=== PATIENT | female | born 1965 | race Caucasian/White ===

== ENCOUNTER 2019-02-25 00:22 | Inpatient (IN) ==
[2019-02-25] MEDS ORDERED: IOPAMIDOL 100 ML BOTTLE IV ONE (00:23)
[2019-02-25] MEDS: METOPROLOL TARTRATE 5 MG/5 ML VIAL IV SCH ×4 (00:45→09:30)
[2019-02-25] MEDS ORDERED: DILTIAZEM 25 MG/5 ML VIAL IV ONE (01:11)
[2019-02-25] MEDS ORDERED: DILTIAZEM 125 MG in DEXTROSE 5% IN WATER 100 ML IV SCH (01:15)
[2019-02-25 01:25] LABS: Basophils # (Auto) 0.1 K/mcL (0.0-0.3); Basophils % (Auto) 0.3 % (0.0-2.0); Eosinophils # (Auto) 0.2 K/mcL (0.0-0.7); Eosinophils % (Auto) 1.2 % (0.0-7.0); Granulocytes % (Auto) 78.5 % (38.0-78.0); Lymphocytes # (Auto) 2.7 K/mcL (1.5-4.8); Lymphocytes % (Auto) 14.3 % (15.5-49.0); Mean Cell Volume 87.6 fL (80.0-100.0); Mean Corpuscular HGB Conc 32.9 g/dL (31.0-36.0); Monocytes # (Auto) 1.1 K/mcL (0.1-0.9); Monocytes % (Auto) 5.7 % (1.0-12.0); Platelet Count 231 K/mcL (140-440); RBC 4.18 M/mcL (4.00-5.20); Red Cell Distribution Width 14.3 % (11.5-14.5)
[2019-02-25 01:55] LABS: ALT/SGPT 14 U/l (0-40); Albumin 3.6 gm/dL (3.2-5.2); Albumin/Globulin Ratio 0.9 (1.0-2.3); Alkaline Phosphatase 149 U/L (39-117); Blood Urea Nitrogen 20 mg/dl (6-20)
[2019-02-25] MEDS ORDERED: 0.9 % SODIUM CHLORIDE 1,000 ML IV ONE (02:27)
--- NOTE | 2019-02-25 02:53 | Emergency Department Note ---
Arrhythmia/Palpitations HPI - General Chief Complaint: Arrhythmia/Palpitations Stated Complaint: heart palpitations Time Seen by Provider: 02/25/19 00:37 Source: patient Mode of arrival: ambulatory Limitations: no limitations - History of Present Illness HPI Narrative: 53-year-old female who since about 8 PM or about 4 hours prior to arrival developed significant racing heartbeat. She has not had this before. She has had general malaise and a cough along with a fever for the last couple of days. She has had left-sided rib pain as well but slow below her breast. Denies any trauma. She is not on home oxygen nor does she have thyroid issues - Related Data Home Medications Medication Instructions Recorded Confirmed mecobalamin (vitamin B12) 1,000 1,000 mcg SUBLINGUAL QDAY 12/19/18 02/25/19 mcg disintegrating tablet,sublingual multivitamin tablet 1 tab PO QAM 12/19/18 02/25/19 Acetaminophen [Tylenol Arthritis] 500 mg PO BID 02/25/19 02/25/19 Ibuprofen [Advil] 800 mg PO BID 02/25/19 02/25/19 Naproxen Sod/Diphenhydram HCl 1 tab PO BID 02/25/19 02/25/19 [Aleve Pm Caplet] Previous Rx's Medication Instructions Recorded tizanidine 4 mg tablet 4 mg PO TID PRN #60 tab 12/19/18 hydrocodone 10 mg-acetaminophen 1 tab PO TID 28 Days #84 tab 01/28/19 325 mg tablet Allergies Allergy/AdvReac Type Severity Reaction Status Date / Time No Known Drug Allergies Allergy Verified 02/25/19 05:25 Review of Systems All systems ED: reviewed and negative except as stated. Past Medical History - Past Medical History Attestation: Yes: The following information was validated with the patient. Medical history: Reports: other (He) Surgical history ED: Reports: bariatric surgery, orthopedic, other (Carpal tunnel, 2 times lumbar surgery, left elbow) - Social History smoking status: Current every day smoker Physical Exam Overweight female no acute distress resting comfortably. Normocephalic atrauma tic. Conjunctive are clear sclerae white and nonicteric. No nasal discharge or congestion. Oropharynx pink moist. Neck is supple without lymphadenopathy or thyromegaly. No carotid bruit. Heart is regular rate and rhythm no murmur appreciated. Lungs are basically clear to auscultation but decreased sounds on the left base. Auscultation is limited by body habitus. no wheezes rales rhonchi or respiratory distress. Abdomen is soft nontender nondistended. No peritoneal signs or guarding. No pedal edema. Alert and oriented Limitations: no limitations Course Vital Signs Temperature 97.5 F 02/25/19 00:24 Pulse Rate 152 H 02/25/19 00:24 Respiratory Rate 28 H 02/25/19 00:24 Blood Pressure 125/86 02/25/19 00:24 Pulse Oximetry (%) 96 02/25/19 00:24 Temperature 98.7 F 02/25/19 04:56 Pulse Rate 69 02/25/19 03:16 Respiratory Rate 16 02/25/19 05:00 Blood Pressure 91/77 02/25/19 05:00 Pulse Oximetry (%) 95 02/25/19 05:13 Arrhythmia/Palpitations - Lab Data Lab results reviewed: Yes I reviewed the patient's lab results. Result diagrams: 02/25/19 00:50 02/25/19 00:50 Lab Results 02/25/19 02/25/19 02/25/19 Range/Units 00:50 00:50 00:50 WBC 18.7 H (4.5-11.0) K/mcL RBC 4.18 (4.00-5.20) M/mcL Hgb 12.0 (12.0-15.0) g/dL Hct 36.6 (36.0-48.0) % POC Hct 38.0 (36.0-48.0) % MCV 87.6 (80.0-100.0) fL MCH 28.8 (26.0-34.0) pg MCHC 32.9 (31.0-36.0) g/dL RDW 14.3 (11.5-14.5) % Plt Count 231 (140-440) K/mcL MPV 11.2 H (7.4-10.4) fL Gran % 78.5 H (38.0-78.0) % Lymph % (Auto) 14.3 L (15.5-49.0) % [place] % (Auto) 5.7 (1.0-12.0) % Eos % (Auto) 1.2 (0.0-7.0) % Baso % (Auto) 0.3 (0.0-2.0) % Gran # 14.7 H (1.8-8.0) K/mcL Lymph # (Auto) 2.7 (1.5-4.8) K/mcL [place] # (Auto) 1.1 H (0.1-0.9) K/mcL Eos # (Auto) 0.2 (0.0-0.7) K/mcL Baso # (Auto) 0.1 (0.0-0.3) K/mcL PT 13.4 (11.9-14.5) sec INR 1.0 (0.9-1.1) D-Dimer 1.55 H (0.00-0.40) ug/ml POC Sodium 140 (133-145) mmol/L Sodium 139 (133-145) mmol/L POC Potassium 3.4 (3.3-5.1) mmol/L Potassium 3.4 (3.3-5.1) mmol/L POC Chloride 106 (96-108) mmol/L Chloride 101 (96-108) mmol/L Carbon Dioxide 20 L (22-30) mmol/L POC Total CO2 21 L (22-30) mmol/L Anion Gap 18.0 H (8-16) POC BUN 21 H (6-20) mg/dl BUN 20 (6-20) mg/dl Creatinine 0.5 L (0.6-1.1) mg/dl POC Creatinine 0.4 L (0.6-1.1) mg/dl GFR Calculation 111 Glucose 128 H (70-105) mg/dL POC Glucose 134 H (70-105) mg/dL Calcium 9.5 (8.6-10.4) mg/dl POC WB Ioniz Calcium 1.18 (1.16-1.32) mmol/L Magnesium 1.8 (1.6-2.5) mg/dL Total Bilirubin 0.4 (0.0-1.0) mg/dL AST 17 (0-37) U/l ALT 14 (0-40) U/l Alkaline Phosphatase 149 H (39-117) U/L Troponin T (0-0.03) ng/ml Total Protein 7.7 (5.9-8.4) gm/dL Albumin 3.6 (3.2-5.2) gm/dL Globulin 4.1 H (2.2-3.7) gm/dL Albumin/Globulin Ratio 0.9 L (1.0-2.3) TSH 1.55 (0.27-5.01) uIU/ml Urine Color Urine Appearance Urine pH (5.0-9.0) Ur Specific [place] (1.000-1.035) Urine Protein (NEG) mg/dL Urine Glucose (UA) (NEG) mg/dL Urine Ketones (NEG) mg/dL Urine Occult Blood (<0.03) mg/dL Urine Nitrate (NEG) Urine Bilirubin (NEG) mg/dL Urine Urobilinogen (NEG) mg/dL Ur Leukocyte Esterase (NEG) /uL Urine RBC (0-1) /hpf Urine WBC (0-4) /hpf Ur Squamous Epith Cells (0-4) /hpf Urine Bacteria (0) /hpf Urine Mucus (0) /hpf Ur Culture Indicated? 02/25/19 02/25/19 Range/Units 00:50 02:00 WBC (4.5-11.0) K/mcL RBC (4.00-5.20) M/mcL Hgb (12.0-15.0) g/dL Hct (36.0-48.0) % POC Hct (36.0-48.0) % MCV (80.0-100.0) fL MCH (26.0-34.0) pg MCHC (31.0-36.0) g/dL RDW (11.5-14.5) % Plt Count (140-440) K/mcL MPV (7.4-10.4) fL Gran % (38.0-78.0) % Lymph % (Auto) (15.5-49.0) % [place] % (Auto) (1.0-12.0) % Eos % (Auto) (0.0-7.0) % Baso % (Auto) (0.0-2.0) % Gran # (1.8-8.0) K/mcL Lymph # (Auto) (1.5-4.8) K/mcL [place] # (Auto) (0.1-0.9) K/mcL Eos # (Auto) (0.0-0.7) K/mcL Baso # (Auto) (0.0-0.3) K/mcL PT (11.9-14.5) sec INR (0.9-1.1) D-Dimer (0.00-0.40) ug/ml POC Sodium (133-145) mmol/L Sodium (133-145) mmol/L POC Potassium (3.3-5.1) mmol/L Potassium (3.3-5.1) mmol/L POC Chloride (96-108) mmol/L Chloride (96-108) mmol/L Carbon Dioxide (22-30) mmol/L POC Total CO2 (22-30) mmol/L Anion Gap (8-16) POC BUN (6-20) mg/dl BUN (6-20) mg/dl Creatinine (0.6-1.1) mg/dl POC Creatinine (0.6-1.1) mg/dl GFR Calculation Glucose (70-105) mg/dL POC Glucose (70-105) mg/dL Calcium (8.6-10.4) mg/dl POC WB Ioniz Calcium (1.16-1.32) mmol/L Magnesium (1.6-2.5) mg/dL Total Bilirubin (0.0-1.0) mg/dL AST (0-37) U/l ALT (0-40) U/l Alkaline Phosphatase (39-117) U/L Troponin T 0.03 (0-0.03) ng/ml Total Protein (5.9-8.4) gm/dL Albumin (3.2-5.2) gm/dL Globulin (2.2-3.7) gm/dL Albumin/Globulin Ratio (1.0-2.3) TSH (0.27-5.01) uIU/ml Urine Color Yellow Urine Appearance Hazy Urine pH 5.0 (5.0-9.0) Ur Specific [place] 1.021 (1.000-1.035) Urine Protein 30 A (NEG) mg/dL Urine Glucose (UA) Negative (NEG) mg/dL Urine Ketones 5/tr A (NEG) mg/dL Urine Occult Blood 0.2 A (<0.03) mg/dL Urine Nitrate Neg (NEG) Urine Bilirubin Neg (NEG) mg/dL Urine Urobilinogen 4.0 A (NEG) mg/dL Ur Leukocyte Esterase 25 A (NEG) /uL Urine RBC 9 H (0-1) /hpf Urine WBC 11 H (0-4) /hpf Ur Squamous Epith Cells 2 (0-4) /hpf Urine Bacteria Mod A (0) /hpf Urine Mucus Many A (0) /hpf Ur Culture Indicated? Yes - Radiology Data Radiology results reviewed: Yes I reviewed the patient's radiology results. Chest x-ray shows a left lower lobe density consistent with infiltrate. CTA is ordered. CTA shows left lower lobe consolidation consistent with neoplasm versus pneumonia - EKG Data EKG attestation: Yes I reviewed and interpreted this EKG. EKG results narrative: EKG shows a rate of 150 atrial fibrillation with rapid ventricular response and left ventricular hypertrophy Disposition Pt seen by [facility]/PA only: No Clinical Impression: Atrial fibrillation with RVR, Mass of left lung Summary: After initial evaluation she was found to be in new onset atrial fibrillation with rapid ventricular response with heart rate in the 150s and 60s. We tried 3 doses of IV metoprolol to get her rapid ventricular response to calm down. This did not work except to get her down into the 130s or so. So we gave her a test dose diltiazem and then started her on a diltiazem drip this we are able to get her down into 110 or so pulse Work-up for causes of atrial fibrillation was negative except for x-ray and CT scan which showed a left lower lobe pneumonia versus neoplasm. Cultures are done and antibiotics are started-Duyen Discussed situation with hospitalist, Dr. Harrington, who agreed to accept the patient for further care and evaluation in the hospital. I wrote holding orders Disposition: Xfer As Inpt ([facility]) Condition: Fair
[2019-02-25 03:04] LABS: Appearance,Urine HAZY; Bacteria,Urine MOD /hpf (0); Bilirubin,Urine NEG (NEG); Color,Urine YELLOW; Glucose,Urine (UA) NEGATIVE (NEG); Leukocyte Esterase,Urine 25 /uL (NEG); Mucus,Urine MANY /hpf (0); Protein,Urine 30 mg/dL (NEG); Specific Gravity,Urine 1.021 (1.000-1.035); Urine Blood 0.2 mg/dL (<0.03); Urine RBC 9 /hpf (0-1); Urine Squamous Epithelial Cell 2 /hpf (0-4); Urine WBC 11 /hpf (0-4)
[2019-02-25] MEDS ORDERED: ACETAMINOPHEN 325 MG TABLET PO PRN ×3 (03:07→08:59)
[2019-02-25] MEDS ORDERED: ONDANSETRON 4 MG/2 ML VIAL IV PRN ×2 (03:07→08:59)
[2019-02-25] MEDS ORDERED: PIPERACILLIN SODIUM/TAZOBACTAM 3.375 GM in DEXTROSE 5% IN WATER 50 ML IV ONE (03:13)
[2019-02-25] MEDS ORDERED: 0.9 % SODIUM CHLORIDE 1,000 ML IV SCH ×4 (03:15→08:59)
--- NOTE | 2019-02-25 05:59 | Cat Scan Report ---
CLINICAL INFORMATION: Atrial fibrillation. Tachycardia. Chest pain. COMPARISON: Chest x-ray dated 02/25/2019 TECHNIQUE: Axial images obtained through the chest. 80 mL intravenous contrast was administered, and scanning was performed during pulmonary arterial phase. Sagittally and coronally reformatted images were obtained. MIP reformatted images. FINDINGS: Main pulmonary artery, right pulmonary artery, left pulmonary artery are negative. No lobar, segmental, or subsegmental emboli. There is reflux of contrast material into the inferior vena cava and hepatic veins which suggests an element of right heart strain. Dense left lower lobe consolidation. Appearance is consistent with pneumonia. Follow-up radiographs are recommended. Right lung is negative. There is mediastinal adenopathy. This is nonspecific and may be reactive. No axillary or supraclavicular adenopathy. No significant pleural effusion. There is no pericardial effusion. There is dense coronary artery calcification, advanced for age. No thoracic compression fractures. No sternal or rib lesions. Visualized portions of the liver are negative. Gallbladder is present. There is a 10 mm nonobstructing right upper pole left renal stone. There are multiple surgical clips in the upper abdomen. Previous gastric bypass procedure suspected. There is residual semisolid material within the. Esophageal study may be helpful. Examination was initially interpreted by [facility] IMPRESSION: 1. Negative pulmonary CTA. Negative examination for pulmonary embolism 2. Dense left lower lobe consolidation consistent with pneumonia. Follow-up is necessary. Mild mediastinal adenopathy 3. Some residual food within the esophagus. 4. Coronary artery calcification, advanced for age 5. Nonobstructing left upper pole renal calculus. 6. Postsurgical changes in the upper abdomen suggest previous gastric bypass 7. Reflux of contrast material into the inferior vena cava and hepatic veins suggestive of right heart strain despite absence of pulmonary emboli The exam was performed using radiation dose optimization techniques including, but not limited to, automated exposure control, adjustment of the mA and/or kV according to patient size and use of iterative reconstruction technique. Interpreted and Authenticated by: Kyree Clifford 02/25/19
--- NOTE | 2019-02-25 06:00 | XRay Report ---
INDICATION: Chest pain. Arrhythmia. TECHNIQUE: PA and lateral upright chest x-ray COMPARISON: Previous chest x-ray dated 09/24/2018 FINDINGS:Mass like density in the left lower lobe. This is probably pneumonia. This was not present previously and this is too rapid growth pattern for lung cancer. Right lung is negative. No parenchymal infiltrate or mass. Heart size and vascularity are within normal limits. Niru and mediastinum are negative. No evidence for significant pleural effusion. There are multiple surgical clips in the upper abdomen IMPRESSION: 1. Left lower lobe consolidation consistent with pneumonia 2. Follow-up chest x-ray recommended Interpreted and Authenticated by: Kyree Clifford 02/25/19
--- NOTE | 2019-02-25 08:05 | Internal Med History&Physical ---
Medical - H&P: [facility] Patient information: Note initiated : 02/25/19 at 8:01 am Service Date, if different from initiated Date: [] Patient: Celina Zheng 53 y/o F admitted on 02/25/19 for Heart Palpitations. Chief Complaint: [] Chief complaint: shortness of breath, palpitation and cough History of present illness: Ms. Zheng is a 53 year old F who [facility] after noticing worsening shortness of breath along with cough and chest palpitation that started 8 hours prior to presentation. Patient has been feeling sick over the last couple of days however her symptoms progressed dramatically this morning after experiencing rapid heart rate along with p leuritic chest pain on the left side. She has associated sweats but denies fever or chills. She denies recent exposure to sick contacts the hospitalization. She denies choking episodes. She denies prior similar events. She continues to smoke a pack a day. Initial workup in the ER was consistent with sepsis with white count over 18,000 along with left lower lobe dense infiltrate consistent with pneumonia. Initial heart rate was over 150 atrial fibrillation. Patient was started on diltiazem drip. Pancultures obtained and sent, antibiotics were initiated . Subsequently hospitalist service for consult for admission At the time evaluation patient is alert oriented. She is able to answer most of the questions. She denies diarrhea, dysuria, abdominal pain, weight loss, glandular swelling. She does have left-sided facial droop. Review of systems 10 point review systems was performed and is negative except as discussed above Medical - H&P: PMH Medical history: Weakness of limb (Chronic) Arthritis (Chronic) DDD (degenerative disc disease) (Chronic) Joint pain (Chronic ~2016) Insomnia (Chronic ~2017) Depression (Chronic ~2017) Daytime sleepiness (Chronic ~2015) Anxiety (Chronic ~2012) Acid reflux (Chronic ~2003) Surgical History History of back surgery (Chronic ~2004) History of colonoscopy (Chronic) History of elbow surgery (Chronic ~2015) Left-nerve History of gastric bypass (Chronic ~2015) History of spinal fusion (Chronic ~2017) Family History Mother Arthritis Hypertension Grandmother Arthritis Maternal & Paternal Dementia Paternal Father Hypertension Social History marital status: smoking status: Current every day smoker alcohol intake frequency: holiday/special occasion only substance use type: does not use Reproductive History Menstrual Age of Menarche: 13 Total pregnancies: 2 Medical - H&P: Meds Home Medications Medication Instructions Recorded Confirmed Type mecobalamin (vitamin B12) 1,000 1,000 mcg SUBLINGUAL QDAY 12/19/18 02/25/19 History mcg disintegrating tablet,sublingual multivitamin tablet 1 tab PO QAM 12/19/18 02/25/19 History tizanidine 4 mg tablet 4 mg PO TID PRN #60 tab 12/19/18 02/25/19 Rx hydrocodone 10 mg-acetaminophen 1 tab PO TID 28 Days #84 tab 01/28/19 02/25/19 Rx 325 mg tablet Acetaminophen [Tylenol Arthritis] 500 mg PO BID 02/25/19 02/25/19 History Ibuprofen [Advil] 800 mg PO BID 02/25/19 02/25/19 History Naproxen Sod/Diphenhydram HCl 1 tab PO BID 02/25/19 02/25/19 History [Aleve Pm Caplet] Allergies Allergy/AdvReac Type Severity Reaction Status Date / Time No Known Drug Allergies Allergy Verified 02/25/19 05:25 Medical - H&P: Exam - Constitutional Vitals: Temp Pulse Resp BP Pulse Ox 98.1 F 69 18 113/80 96 02/25/19 08:00 02/25/19 03:16 02/25/19 08:00 02/25/19 08:00 02/25/19 08:00 General appearance: moderate distress Exam: Patient alert and oriented Oral cavity dry Head normocephalic No scleral icterus No neck lymphadenopathy S1 and S2 irregular rhythm tachycardia Diminished breath sounds bases, left sided increased fremitus posterior lateral chest Abdomen soft nontender Lower extremity no cyanosis clubbing or joint swelling Skin no suspicious lesion Psych alert cooperative Neuro nonfocal Medical - H&P: Reslt - Labs CBC & Chem 7: 02/25/19 00:50 02/25/19 00:50 Labs: Short CBC 02/25/19 Range/Units 00:50 WBC 18.7 H (4.5-11.0) K/mcL Hgb 12.0 (12.0-15.0) g/dL Hct 36.6 (36.0-48.0) % Plt Count 231 (140-440) K/mcL BMP 02/25/19 00:50 Sodium 139 Potassium 3.4 Chloride 101 Carbon Dioxide 20 L BUN 20 Creatinine 0.5 L Glucose 128 H Calcium 9.5 Cardiac Enzymes 02/25/19 02/25/19 Range/Units 00:50 04:53 Troponin T 0.03 0.03 (0-0.03) ng/ml Liver Function 02/25/19 Range/Units 00:50 Total Bilirubin 0.4 (0.0-1.0) mg/dL AST 17 (0-37) U/l ALT 14 (0-40) U/l Alkaline Phosphatase 149 H (39-117) U/L Albumin 3.6 (3.2-5.2) gm/dL Urine 02/25/19 Range/Units 02:00 Urine Color Yellow Urine Appearance Hazy Urine pH 5.0 (5.0-9.0) Ur Specific [place] 1.021 (1.000-1.035) Urine Protein 30 A (NEG) mg/dL Urine Glucose (UA) Negative (NEG) mg/dL - Imaging and Cardiology CT scan - chest Status: image reviewed by me Additional comments: 1. Negative pulmonary CTA. Negative examination for pulmonary embolism 2. Dense left lower lobe consolidation consistent with pneumonia. Follow-up is necessary. Mild mediastinal adenopathy 3. Some residual food within the esophagus. 4. Coronary artery calcification, advanced for age 5. Nonobstructing left upper pole renal calculus. 6. Postsurgical changes in the upper abdomen suggest previous gastric bypass 7. Reflux of contrast material into the inferior vena cava and hepatic veins suggestive of right heart strain despite absence of pulmonary emboli Medical - H&P: A/P (1) Atrial fibrillation with RVR Current visit: Yes Status: Acute * Atrial fibrillation with rapid ventricular rate-secondary to sepsis and pneumo tiffanie. Continue rate control measures/telemetry monitoring. Target heart rate around 110-120, check echocardiogram,/normal TSH * Left lower lobe pneumonia evident on CT-start antibiotic coverage for enteric pathogen. Check strep pneumo/mycoplasma serology * Severe sepsis with white count over 18,000. Continue antibiotic coverage/crystalloids. Continue management per guidelines * Acute cystitis-continue antibiotic coverage * Full code * Prophylaxis heparin Plan * Sepsis management per guidelines/broad antibiotic coverage * Rate control measures * Echocardiogram * Repeat chest imaging in 2 weeks * Inpatient admitted in light of pneumonia severity index over 100. qSofa score 2 Medical - H&P: Qual - VTE Deep Vein Thrombosis/Pulmonary Embolism Present on Admission: No
[2019-02-25] MEDS ORDERED: tiZANidine 4 MG TABLET PO PRN (08:59)
[2019-02-25] MEDS ORDERED: MAGNESIUM SULFATE 2 GM/50 ML BAG IV PRN (08:59)
[2019-02-25] MEDS ORDERED: POTASSIUM CHLORIDE 20 MEQ PACKET PO PRN (08:59)
[2019-02-25] MEDS ORDERED: tiZANidine 4 MG TABLET PO SCH ×2 (09:00)
[2019-02-25] MEDS ORDERED: HYDROcodone/APAP 10/325MG TABLET PO SCH (09:00)
[2019-02-25] MEDS ORDERED: METOPROLOL TARTRATE 5 MG/5 ML VIAL IV PRN (09:22)
[2019-02-25] MEDS: MULTIVIT,THER IRON,CA,FA & MIN 1 TABLET PO SCH (10:06)
[2019-02-25] MEDS: NICOTINE 21 MG PATCH TOPICAL SCH (10:06)
[2019-02-25] MEDS: METOPROLOL TARTRATE 25 MG TABLET PO SCH ×2 (10:06→20:53)
[2019-02-25] MEDS: DOCUSATE SODIUM 100 MG CAPSULE PO SCH ×3 (10:07→20:52)
[2019-02-25] MEDS: HEPARIN 5,000 UNIT/ML VIAL SQ SCH ×2 (10:09→20:52)
[2019-02-25] MEDS: cefTRIAXone 2 GM in DEXTROSE 5% IN WATER 50 ML IV SCH (10:10)
[2019-02-25] MEDS: 0.9 % SODIUM CHLORIDE 1,000 ML IV SCH (10:11)
[2019-02-25 10:13] LABS: C-Reactive Protein 26.9 mg/dl (0.0-0.8)
[2019-02-25] MEDS: IPRATROPIUM/ALBUTEROL 3 ML AMPUL.NEB NEB SCH ×4 (10:35→23:01)
[2019-02-25] MEDS: BUDESONIDE 0.5 MG/2 ML AMPUL.NEB NEB SCH ×2 (10:35→18:41)
[2019-02-25] MEDS: LEVOFLOXACIN 750 MG/150 ML BAG IV SCH (11:03)
[2019-02-25] MEDS ORDERED: DILTIAZEM 125 MG in DEXTROSE 5% IN WATER 100 ML IV PRN (13:15)
[2019-02-25] MEDS: HYDROcodone/APAP 10/325MG TABLET PO PRN ×3 (13:50→23:56)
[2019-02-25] MEDS: 0.9 % SODIUM CHLORIDE 10 ML SYRINGE IV SCH ×2 (14:26→22:00)
[2019-02-25] MEDS: SENNOSIDES/DOCUSATE SODIUM 1 TAB TABLET PO SCH (20:52)
[2019-02-26] MEDS: IPRATROPIUM/ALBUTEROL 3 ML AMPUL.NEB NEB SCH ×3 (02:45→11:17)
[2019-02-26] MEDS: 0.9 % SODIUM CHLORIDE 10 ML SYRINGE IV SCH ×3 (05:19→20:57)
[2019-02-26 06:02] LABS: Mean Cell Volume 88.9 fL (80.0-100.0); Mean Corpuscular HGB Conc 32.1 g/dL (31.0-36.0); Platelet Count 193 K/mcL (140-440); RBC 3.38 M/mcL (4.00-5.20)
[2019-02-26] MEDS: METOPROLOL TARTRATE 25 MG TABLET PO SCH (06:02)
[2019-02-26 06:42] LABS: ALT/SGPT 22 U/l (0-40); Albumin 2.9 gm/dL (3.2-5.2); Albumin/Globulin Ratio 0.8 (1.0-2.3); Alkaline Phosphatase 137 U/L (39-117); Bilirubin,Direct < 0.2 mg/dL (0.0-0.3); Blood Urea Nitrogen 13 mg/dl (6-20); Gamma Glutamyl Transpeptidase 59 U/L (5-36); Uric Acid 5.7 mg/dL (2.5-8.0)
[2019-02-26 06:48] LABS: Band Neutrophils % 4 % (0-10); Eosinophils % (Manual) 3 % (0-7); Lymphocytes % 31 % (15-49); Monocytes % (Manual) 7 % (1-12); Platelet Estimate NORMAL (NORMAL); RBC Morphology NORMAL (NORMAL); Segmented Neutrophils % 55 % (38-78)
[2019-02-26] MEDS: BUDESONIDE 0.5 MG/2 ML AMPUL.NEB NEB SCH (07:09)
[2019-02-26] MEDS: 0.9 % SODIUM CHLORIDE 1,000 ML IV SCH (08:26)
[2019-02-26] MEDS: MULTIVIT,THER IRON,CA,FA & MIN 1 TABLET PO SCH (08:31)
[2019-02-26] MEDS: CYANOCOBALAMIN (VITAMIN B-12) 500 MCG TABLET PO SCH (08:31)
[2019-02-26] MEDS: NICOTINE 21 MG PATCH TOPICAL SCH (08:31)
[2019-02-26] MEDS: DOCUSATE SODIUM 100 MG CAPSULE PO SCH ×2 (08:31→20:56)
[2019-02-26] MEDS: HEPARIN 5,000 UNIT/ML VIAL SQ SCH (08:31)
[2019-02-26] MEDS: cefTRIAXone 2 GM in DEXTROSE 5% IN WATER 50 ML IV SCH (08:53)
[2019-02-26] MEDS ORDERED: METOPROLOL TARTRATE 25 MG TABLET PO ONE (08:54)
[2019-02-26] MEDS ORDERED: FLUCONAZOLE 100 MG TABLET PO SCH (09:00)
[2019-02-26] MEDS: LEVOFLOXACIN 750 MG/150 ML BAG IV SCH (10:10)
--- NOTE | 2019-02-26 10:59 | Internal Med Progress Note ---
Medical - PN: Subj Patient information: Note initiated : 02/26/19 at 10:56 am Service Date, if different from initiated Date: [] Patient: Celina Zheng 53 y/o F admitted on 02/25/19 for Heart Palpitations. Chief Complaint: [] Interval history: Ms. Zheng is a 53 year old F who comes in with her spouse Renetta to [facility] ER after noticing worsening shortness of breath along with cough and chest palpitation that started 8 hours prior to presentation. Patient has been feeling sick over the last couple of days however her symptoms progressed dramatically this morning after experiencing rapid heart rate along with pleuritic chest pain on the left side. She has associated sweats but denies fever or chills. She denies recent exposure to sick contacts the hospitalization. She denies choking episodes. She denies prior similar events. She continues to smoke a pack a day. Initial workup in the ER was consistent with sepsis with white count over 18,000 along with left lower lobe dense infiltrate consistent with pneumonia. Initial heart rate was over 150 atrial fibrillation. Patient was started on diltiazem drip. Pancultures obtained and sent, antibiotics were initiated . Subsequently hospitalist service for consult for admission At the time evaluation patient is alert oriented. She is able to answer most of the questions. She denies diarrhea, dysuria, abdominal pain, weight loss, glandular swelling. She does have left-sided facial droop. 5/8-patient doing a lot better. No overnight events. White count down from 18,000-8000. Improved shortness of breath. Stable hemodynamics. Heart rate improving. Metoprolol increased from 25-50 mg. Started on full dose anticoagulation on rivaroxaban. Patient would be a candidate for cardioversion in 28 days if fails to convert spontaneously. Cultures negative so far, urine culture gram-negative masses, negative serologies. Pro-calcitonin 1.26. Patient will need outpatient CT in 10-14 days for interval assessment of lung density - Constitutional Vitals: Vital Signs Temp Pulse Resp BP Pulse Ox 97.3 F 98 H 16 111/89 94 02/26/19 07:00 02/26/19 07:12 02/26/19 07:12 02/26/19 07:00 02/26/19 07:12 Period Temp Pulse Resp BP Sys/Mejia Pulse Ox Last 24 Hr 97.3 F-98.1 F 94-106 16-24 95-150/76-98 94-99 Intake and Output 02/25/19 02/26/19 02/26/19 21:59 05:59 13:59 Intake Total 5027 621 8518 Output Total 300 75 Balance 001 048 4523 Weight 247 lb 12.8 oz Intake & Output: Intake & Output 02/25/19 02/26/19 02/26/19 21:59 05:59 13:59 Intake Total 6107 254 9488 Output Total 300 75 Balance 997 751 9720 Weight 247 lb 12.8 oz Intake: IV 1000 1050 Sodium Chloride 0.9% 1,000 ml @ 1000 50 mls/hr IV .Q20H [facility] Rx#: [id number] Rocephin 2 gm In Dextrose 5% in 50 Water 50 ml @ 100 mls/hr IV Q24H [facility] Rx#:[id number] Oral 400 360 Output: Void Amount 300 75 Other: Meal snack Breakfast Percent of Meal Consumed 100% 100% Feeding Ability Assist with Tray Set Up Independent Urine Appearance Clear Clear Urine Color Light Pat Light Pat Urine Odor Strong Strong # Bowel Movements 1 General appearance: no acute distress Exam: Alert oriented Nonlabored breathing No anxiety No dyspnea Medical - PN: Obj Da - Labs CBC & Chem 7: 02/26/19 03:40 02/26/19 03:40 Labs: Abnormal Lab Results 02/26/19 02/26/19 02/25/19 03:40 03:40 09:15 WBC RBC 3.38 L Hgb 9.6 L Hct 30.1 L RDW 15.0 H MPV 10.6 H Gran % Lymph % (Auto) Gran # [place] # (Auto) ESR D-Dimer Chloride 110 H Carbon Dioxide POC Total CO2 Anion Gap 7.0 L POC BUN Creatinine 0.4 L POC Creatinine Glucose POC Glucose GGT 59 H Alkaline Phosphatase 137 H C-Reactive Protein 26.9 H Albumin 2.9 L Globulin Albumin/Globulin Ratio 0.8 L Urine Protein Urine Ketones Urine Occult Blood Urine Urobilinogen Ur Leukocyte Esterase Urine RBC Urine WBC Urine Bacteria Urine Mucus 02/25/19 02/25/19 02/25/19 09:15 02:00 00:50 WBC RBC Hgb Hct RDW MPV Gran % Lymph % (Auto) Gran # [place] # (Auto) ESR 103 H D-Dimer Chloride Carbon Dioxide 20 L POC Total CO2 21 L Anion Gap 18.0 H POC BUN 21 H Creatinine 0.5 L POC Creatinine 0.4 L Glucose 128 H POC Glucose 134 H GGT Alkaline Phosphatase 149 H C-Reactive Protein Albumin Globulin 4.1 H Albumin/Globulin Ratio 0.9 L Urine Protein 30 A Urine Ketones 5/tr A Urine Occult Blood 0.2 A Urine Urobilinogen 4.0 A Ur Leukocyte Esterase 25 A Urine RBC 9 H Urine WBC 11 H Urine Bacteria Mod A Urine Mucus Many A 02/25/19 02/25/19 00:50 00:50 WBC 18.7 H RBC Hgb Hct RDW MPV 11.2 H Gran % 78.5 H Lymph % (Auto) 14.3 L Gran # 14.7 H [place] # (Auto) 1.1 H ESR D-Dimer 1.55 H Chloride Carbon Dioxide POC Total CO2 Anion Gap POC BUN Creatinine POC Creatinine Glucose POC Glucose GGT Alkaline Phosphatase C-Reactive Protein Albumin Globulin Albumin/Globulin Ratio Urine Protein Urine Ketones Urine Occult Blood Urine Urobilinogen Ur Leukocyte Esterase Urine RBC Urine WBC Urine Bacteria Urine Mucus Meds: Medications Acetaminophen (Tylenol) 650 mg PO Q4-6HP PRN PRN Reason: PAIN/FEVER > 101 Last Admin: 02/25/19 18:25 Dose: 650 mg Documented by: Hydrocodone Bitart/Acetaminophen ([place] 10/325mg) 1 tab PO TIDP PRN PRN Reason: Pain Last Admin: 02/25/19 23:56 Dose: 1 tab Documented by: Albuterol/Ipratropium (Duoneb) 3 ml NEB Q4HRT [facility] Last Admin: 02/26/19 07:09 Dose: 3 ml Documented by: Budesonide (Pulmicort) 0.5 mg NEB Q12 [facility] Last Admin: 02/26/19 07:09 Dose: 0.5 mg Documented by: Cyanocobalamin (Vitamin B-12) 1,000 mcg PO DAILY [facility] Last Admin: 02/26/19 08:31 Dose: 1,000 mcg Documented by: Docusate Sodium (Colace) 100 mg PO BID [facility] Last Admin: 02/26/19 08:31 Dose: 100 mg Documented by: Heparin Sodium (Porcine) (Heparin) 5,000 unit SQ Q12 [facility] Last Admin: 02/26/19 08:31 Dose: 5,000 unit Documented by: Diltiazem HCl 125 mg/ Dextrose 125 mls @ 5 mls/hr IV Q12HP PRN; Protocol PRN Reason: Tachyarrhythmias Ceftriaxone Sodium 2 gm/ (Dextrose) 50 mls @ 100 mls/hr IV Q24H [facility]; Protocol Last Infusion: 02/26/19 10:13 Dose: Infused Documented by: Levofloxacin (Levaquin) 750 mg in 150 mls @ 100 mls/hr IV Q24H [facility]; Protocol Last Admin: 02/26/19 10:10 Dose: 100 mls/hr Documented by: Magnesium Sulfate (Magnesium Sulfate) 2 gm in 50 mls @ 50 mls/hr IV UD PRN PRN Reason: MG = or < 1.7 Sodium Chloride (Sodium Chloride 0.9%) 1,000 mls @ 50 mls/hr IV .Q20H [facility] Stop: 02/27/19 20:58 Last Admin: 02/26/19 08:26 Dose: 50 mls/hr Documented by: Iron Carb/Multivit/Becker/Folic Acid (Multivitamin W/Minerals) 1 tab PO DAILY [facility] Last Admin: 02/26/19 08:31 Dose: 1 tab Documented by: Metoprolol Tartrate (Lopressor) 50 mg PO BID [facility] Nicotine (Nicoderm) 21 mg TOPICAL DAILY@1000 [facility] Last Admin: 02/26/19 08:31 Dose: Not Given Documented by: Ondansetron HCl (Zofran) 4 mg IV Q4HP PRN PRN Reason: Nausea And Vomiting Potassium Chloride (Klor-Con) 40 meq PO DAILYP PRN PRN Reason: K+ < 3.5 Senna/Docusate Sodium (Senna Plus Tablet) 1 tab PO HS [facility] Last Admin: 02/25/19 20:52 Dose: Not Given Documented by: Sodium Chloride (Saline Flush) 10 ml IV Q8 [facility] Last Admin: 02/26/19 05:19 Dose: 10 ml Documented by: Tizanidine HCl (Zanaflex) 4 mg PO TIDP PRN PRN Reason: muscle spasticity Medical - PN: A/P - Time Spent With Patient Total time spent is greater than 50% in coordination of care (as documented) at patient's floor/unit and/or counseling patient: 25 - 35 minutes (1) Atrial fibrillation with RVR Status: Acute Assessment and plan: * Atrial fibrillation with rapid ventricular rate-secondary to sepsis and pneumonia. Continue rate control measures/telemetry monitoring. Echocardiogram 75% EF with mild atrial enlargement. Started on rivaroxaban. Will be a candidate for cardioversion. * Left lower lobe pneumonia evident on continue antibiotic coverage. Negative serologies so far * Hypoxic respiratory insufficiency clinically improved. Now on room air * Severe sepsis with white count over 18,000. Continue antibiotic coverage/crystalloids. Continue management per guidelines * Acute GNR cystitis-continue antibiotic coverage * Full code * Prophylaxis heparin Plan * Continue antibiotic coverage * Rate control measures * Anticoagulation, will need cardioversion in 28 days * Repeat chest imaging in 2 weeks(dense lung infiltrate/mass) * PT OT/nutritional support Current Visit: Yes Medical - PN: Qual - VTE Deep Vein Thrombosis/Pulmonary Embolism Present on Admission: No
[2019-02-26] MEDS: RIVAROXABAN 15 MG TABLET PO SCH ×2 (11:45→17:38)
[2019-02-26] MEDS: HYDROcodone/APAP 10/325MG TABLET PO PRN ×2 (12:37→17:38)
[2019-02-26] MEDS ORDERED: IPRATROPIUM/ALBUTEROL 3 ML AMPUL.NEB NEB PRN (12:46)
[2019-02-26] MEDS ORDERED: METOPROLOL TARTRATE 5 MG/5 ML VIAL IV PRN ×2 (15:36→18:39)
[2019-02-26] MEDS ORDERED: DIGOXIN 500 MCG/2 ML AMPUL IV ONE (15:36)
[2019-02-26] MEDS: METOPROLOL TARTRATE 50 MG TABLET PO SCH (20:56)
[2019-02-26] MEDS: SENNOSIDES/DOCUSATE SODIUM 1 TAB TABLET PO SCH (20:56)
[2019-02-27] MEDS: HYDROcodone/APAP 10/325MG TABLET PO PRN ×3 (00:15→18:07)
[2019-02-27] MEDS: 0.9 % SODIUM CHLORIDE 1,000 ML IV SCH ×2 (00:57→06:47)
[2019-02-27] MEDS: 0.9 % SODIUM CHLORIDE 10 ML SYRINGE IV SCH ×3 (04:36→20:59)
[2019-02-27 05:56] LABS: Mean Corpuscular HGB Conc 32.3 g/dL (31.0-36.0); Platelet Count 226 K/mcL (140-440); RBC 3.29 M/mcL (4.00-5.20); Red Cell Distribution Width 14.1 % (11.5-14.5)
[2019-02-27 06:33] LABS: ALT/SGPT 46 U/l (0-40); Albumin/Globulin Ratio 0.9 (1.0-2.3); Alkaline Phosphatase 185 U/L (39-117); Bilirubin,Direct < 0.2 mg/dL (0.0-0.3); Blood Urea Nitrogen 11 mg/dl (6-20); Gamma Glutamyl Transpeptidase 127 U/L (5-36); Uric Acid 5.8 mg/dL (2.5-8.0)
--- NOTE | 2019-02-27 07:53 | XRay Report ---
INDICATION: Follow-up left lower lobe consolidation TECHNIQUE: AP chest x-ray,portable semiupright COMPARISON: Chest CT scan dated 02/25/2019. Chest x-ray dated 02/25/2019 FINDINGS:When allowances are made for differences in technique there is been no definite interval change in left lower lobe consolidation. This remains most consistent with pneumonia although neoplasm is not excluded. Continued radiographic follow-up is necessary. Right lung is negative. No parenchymal infiltrate or mass. No evidence for congestive heart failure IMPRESSION: 1. Persistent left lower lobe consolidation. 2. No definite interval change since 02/25/2019 Interpreted and Authenticated by: Kyree Clifford 02/27/19
[2019-02-27 08:07] LABS: Eosinophils % (Manual) 6 % (0-7); Lymphocytes % 36 % (15-49); Monocytes % (Manual) 7 % (1-12); Platelet Estimate NORMAL (NORMAL); RBC Morphology NORMAL (NORMAL); Segmented Neutrophils % 51 % (38-78)
--- NOTE | 2019-02-27 09:11 | Internal Med Progress Note ---
Medical - PN: Subj Patient information: Note initiated : 02/27/19 at 9:08 am Service Date, if different from initiated Date: [] Patient: Celina Zheng 53 y/o F admitted on 02/25/19 for Heart Palpitations. Chief Complaint: [] Interval history: Ms. Zheng is a 53 year old F who comes in with her spouse Renetta to [facility] ER after noticing worsening shortness of breath along with cough and chest palpitation that started 8 hours prior to presentation. Patient has been feeling sick over the last couple of days however her symptoms progressed dramatically this morning after experiencing rapid heart rate along with pleuritic chest pain on the left side. She has associated sweats but denies fever or chills. She denies recent exposure to sick contacts the hospitalization. She denies choking episodes. She denies prior similar events. She continues to smoke a pack a day. Initial workup in the ER was consistent with sepsis with white count over 18,000 along with left lower lobe dense infiltrate consistent with pneumonia. Initial heart rate was over 150 atrial fibrillation. Patient was started on diltiazem drip. Pancultures obtained and sent, antibiotics were initiated . Subsequently hospitalist service for consult for admission At the time evaluation patient is alert oriented. She is able to answer most of the questions. She denies diarrhea, dysuria, abdominal pain, weight loss, glandular swelling. She does have left-sided facial droop. 02/26-patient doing a lot better. No overnight events. White count down from 18,000-8000. Improved shortness of breath. Stable hemodynamics. Heart rate improving. Metoprolol increased from 25-50 mg. Started on full dose anticoagulation on rivaroxaban. Patient would be a candidate for cardioversion in 28 days if fails to convert spontaneously. Cultures negative so far, urine culture gram-negative masses, negative serologies. Pro-calcitonin 1.26. Patient will need outpatient CT in 10-14 days for interval assessment of lung density 02/27-doing well, c/o pleuritic chest pain left side, repeat chest imaging persistent infiltrate. If pleurisy persistent will rule out syndrome pneumonia Effusion/empyema in 24 hours. Patient converted to sinus post digoxin. DC rivaroxaban/digoxin. Family members at bedside. No overnight events including fever chills or productive cough. No other concerns expressed by nursing staff. White count down to 7.2, LFTs slightly elevated. - Constitutional Vitals: Vital Signs Temp Pulse Resp BP Pulse Ox 97.7 F 71 19 112/82 94 02/27/19 06:50 02/27/19 06:50 02/27/19 06:50 02/27/19 06:50 02/27/19 06:50 Period Temp Pulse Resp BP Sys/Mejia Pulse Ox Last 24 Hr 97.6 F-98.6 F 71-146 18-20 107-160/68-115 94-98 Intake and Output 02/26/19 02/27/19 02/27/19 21:59 05:59 13:59 Intake Total 650 395 2502 Balance 852 593 0252 Weight 248 lb Intake & Output: Intake & Output 02/26/19 02/27/19 02/27/19 21:59 05:59 13:59 Intake Total 109 186 8969 Balance 883 344 6682 Weight 248 lb Intake: IV 150 1000 Sodium Chloride 0.9% 1,000 ml @ 1000 50 mls/hr IV .Q20H [facility] Rx#: [id number] Oral 300 300 Other: Meal Dinner Percent of Meal Consumed 25% Feeding Ability Independent Urine Appearance Clear Urine Color Light Pat Stool Size Moderate # Voids 1 1 # Bowel Movements 1 General appearance: no acute distress Exam: Alert oriented Nonlabored breathing . Complains of pleurisy Diminished breath sounds left base Abdomen soft Lower extremity no lymphedema Medical - PN: Obj Da - Labs CBC & Chem 7: 02/27/19 03:17 02/27/19 03:17 Labs: Abnormal Lab Results 02/27/19 02/27/19 02/26/19 03:17 03:17 03:40 WBC RBC 3.29 L Hgb 9.4 L Hct 29.0 L RDW MPV 10.6 H Gran % Lymph % (Auto) Gran # [place] # (Auto) ESR D-Dimer Chloride 110 H Carbon Dioxide POC Total CO2 Anion Gap 7.0 L POC BUN Creatinine 0.4 L 0.4 L POC Creatinine Glucose POC Glucose GGT 127 H 59 H AST 54 H ALT 46 H Alkaline Phosphatase 185 H 137 H C-Reactive Protein Albumin 3.0 L 2.9 L Globulin Albumin/Globulin Ratio 0.9 L 0.8 L Urine Protein Urine Ketones Urine Occult Blood Urine Urobilinogen Ur Leukocyte Esterase Urine RBC Urine WBC Urine Bacteria Urine Mucus 02/26/19 02/25/19 02/25/19 03:40 09:15 09:15 WBC RBC 3.38 L Hgb 9.6 L Hct 30.1 L RDW 15.0 H MPV 10.6 H Gran % Lymph % (Auto) Gran # [place] # (Auto) ESR 103 H D-Dimer Chloride Carbon Dioxide POC Total CO2 Anion Gap POC BUN Creatinine POC Creatinine Glucose POC Glucose GGT AST ALT Alkaline Phosphatase C-Reactive Protein 26.9 H Albumin Globulin Albumin/Globulin Ratio Urine Protein Urine Ketones Urine Occult Blood Urine Urobilinogen Ur Leukocyte Esterase Urine RBC Urine WBC Urine Bacteria Urine Mucus 02/25/19 02/25/19 02/25/19 02:00 00:50 00:50 WBC RBC Hgb Hct RDW MPV Gran % Lymph % (Auto) Gran # [place] # (Auto) ESR D-Dimer 1.55 H Chloride Carbon Dioxide 20 L POC Total CO2 21 L Anion Gap 18.0 H POC BUN 21 H Creatinine 0.5 L POC Creatinine 0.4 L Glucose 128 H POC Glucose 134 H GGT AST ALT Alkaline Phosphatase 149 H C-Reactive Protein Albumin Globulin 4.1 H Albumin/Globulin Ratio 0.9 L Urine Protein 30 A Urine Ketones 5/tr A Urine Occult Blood 0.2 A Urine Urobilinogen 4.0 A Ur Leukocyte Esterase 25 A Urine RBC 9 H Urine WBC 11 H Urine Bacteria Mod A Urine Mucus Many A 02/25/19 00:50 WBC 18.7 H RBC Hgb Hct RDW MPV 11.2 H Gran % 78.5 H Lymph % (Auto) 14.3 L Gran # 14.7 H [place] # (Auto) 1.1 H ESR D-Dimer Chloride Carbon Dioxide POC Total CO2 Anion Gap POC BUN Creatinine POC Creatinine Glucose POC Glucose GGT AST ALT Alkaline Phosphatase C-Reactive Protein Albumin Globulin Albumin/Globulin Ratio Urine Protein Urine Ketones Urine Occult Blood Urine Urobilinogen Ur Leukocyte Esterase Urine RBC Urine WBC Urine Bacteria Urine Mucus Meds: Medications Acetaminophen (Tylenol) 650 mg PO Q4-6HP PRN PRN Reason: PAIN/FEVER > 101 Last Admin: 02/25/19 18:25 Dose: 650 mg Documented by: Hydrocodone Bitart/Acetaminophen ([place] 10/325mg) 1 tab PO TIDP PRN PRN Reason: Pain Last Admin: 02/27/19 07:16 Dose: 1 tab Documented by: Albuterol/Ipratropium (Duoneb) 3 ml NEB Q4HP PRN PRN Reason: Shortness Of Breath Or Wheezing Cyanocobalamin (Vitamin B-12) 1,000 mcg PO DAILY [facility] Last Admin: 02/26/19 08:31 Dose: 1,000 mcg Documented by: Docusate Sodium (Colace) 100 mg PO BID [facility] Last Admin: 02/26/19 20:56 Dose: 100 mg Documented by: Diltiazem HCl 125 mg/ Dextrose 125 mls @ 5 mls/hr IV Q12HP PRN; Protocol PRN Reason: Tachyarrhythmias Ceftriaxone Sodium 2 gm/ (Dextrose) 50 mls @ 100 mls/hr IV Q24H [facility]; Protocol Last Infusion: 02/26/19 10:13 Dose: Infused Documented by: Levofloxacin (Levaquin) 750 mg in 150 mls @ 100 mls/hr IV Q24H [facility]; Protocol Last Infusion: 02/26/19 17:39 Dose: Infused Documented by: Magnesium Sulfate (Magnesium Sulfate) 2 gm in 50 mls @ 50 mls/hr IV UD PRN PRN Reason: MG = or < 1.7 Sodium Chloride (Sodium Chloride 0.9%) 1,000 mls @ 50 mls/hr IV .Q20H [facility] Stop: 02/27/19 20:58 Last Admin: 02/27/19 06:47 Dose: 50 mls/hr Documented by: Iron Carb/Multivit/Stencil Machine Operator/Folic Acid (Multivitamin W/Minerals) 1 tab PO DAILY [facility] Last Admin: 02/26/19 08:31 Dose: 1 tab Documented by: Metoprolol Tartrate (Lopressor) 50 mg PO BID [facility] Last Admin: 02/26/19 20:56 Dose: 50 mg Documented by: Nicotine (Nicoderm) 21 mg TOPICAL DAILY@1000 [facility] Last Admin: 02/26/19 08:31 Dose: Not Given Documented by: Ondansetron HCl (Zofran) 4 mg IV Q4HP PRN PRN Reason: Nausea And Vomiting Potassium Chloride (Klor-Con) 40 meq PO DAILYP PRN PRN Reason: K+ < 3.5 [facility] Last Admin: 02/26/19 17:38 Dose: 15 mg Documented by: Senna/Docusate Sodium (Senna Plus Tablet) 1 tab PO HS [facility] Last Admin: 02/26/19 20:56 Dose: Not Given Documented by: Sodium Chloride (Saline Flush) 10 ml IV Q8 [facility] Last Admin: 02/27/19 04:36 Dose: Not Given Documented by: Tizanidine HCl (Zanaflex) 4 mg PO TIDP PRN PRN Reason: muscle spasticity Medical - PN: A/P - Time Spent With Patient Total time spent is greater than 50% in coordination of care (as documented) at patient's floor/unit and/or counseling patient: 25 - 35 minutes (1) Atrial fibrillation with RVR Status: Acute Assessment and plan: * Left lower lobe pneumonia-improving on antibiotic coverage. * Pleurisy-rule out empyema. Check chest ultrasound. * Atrial fibrillation with rapid ventricular rate-secondary to sepsis and pneumonia. Spontaneously cardioverted now in sinus. DC rivaroxaban * Hypoxic respiratory insufficiency - resolved now on room air * Severe sepsis with white count over 18,000. Resolved now white count 7000 * Acute GNR cystitis-continue antibiotic coverage * Full code * Prophylaxis heparin Plan * Continue antibiotic coverage * Chest ultrasound * DC anticoagulation * Repeat chest imaging in 2 weeks(dense lung infiltrate/mass) * PT OT/nutritional support Current Visit: Yes Medical - PN: Qual - VTE Deep Vein Thrombosis/Pulmonary Embolism Present on Admission: No
[2019-02-27] MEDS: METOPROLOL TARTRATE 50 MG TABLET PO SCH ×2 (09:47→20:58)
[2019-02-27] MEDS: DOCUSATE SODIUM 100 MG CAPSULE PO SCH ×2 (09:47→20:58)
[2019-02-27] MEDS: cefTRIAXone 2 GM in DEXTROSE 5% IN WATER 50 ML IV SCH (09:48)
[2019-02-27] MEDS: MULTIVIT,THER IRON,CA,FA & MIN 1 TABLET PO SCH (09:48)
[2019-02-27] MEDS: RIVAROXABAN 15 MG TABLET PO SCH (09:49)
[2019-02-27] MEDS: CYANOCOBALAMIN (VITAMIN B-12) 500 MCG TABLET PO SCH (09:56)
--- NOTE | 2019-02-27 09:57 | Ultrasound Report ---
CLINICAL INFORMATION: Possible pleurisy TECHNIQUE: Routine soft tissue ultrasound of the chest COMPARISON: Chest CT scan dated 02/25/2019. Chest x-ray dated 02/27/2019 FINDINGS: No pleural fluid identified in either the left or right pleural space. No evidence for empyema IMPRESSION: Negative examination for pleural fluid Interpreted and Authenticated by: Kyree Clifford 02/27/19
[2019-02-27] MEDS: LEVOFLOXACIN 750 MG/150 ML BAG IV SCH (10:08)
[2019-02-27] MEDS: NICOTINE 21 MG PATCH TOPICAL SCH (10:09)
[2019-02-27] MEDS: SENNOSIDES/DOCUSATE SODIUM 1 TAB TABLET PO SCH (20:58)
[2019-02-27] MEDS ORDERED: CLINDAMYCIN VAG SCH (21:00)
[2019-02-28] MEDS: HYDROcodone/APAP 10/325MG TABLET PO PRN (00:55)
[2019-02-28] MEDS: 0.9 % SODIUM CHLORIDE 10 ML SYRINGE IV SCH ×2 (05:09→09:26)
[2019-02-28 05:57] LABS: Mean Cell Volume 88.5 fL (80.0-100.0); Mean Corpuscular HGB Conc 32.2 g/dL (31.0-36.0); Platelet Count 240 K/mcL (140-440); RBC 3.26 M/mcL (4.00-5.20)
[2019-02-28 06:28] LABS: ALT/SGPT 41 U/l (0-40); Albumin 2.9 gm/dL (3.2-5.2); Albumin/Globulin Ratio 0.8 (1.0-2.3); Alkaline Phosphatase 176 U/L (39-117); Bilirubin,Direct < 0.2 mg/dL (0.0-0.3); Blood Urea Nitrogen 9 mg/dl (6-20); Gamma Glutamyl Transpeptidase 132 U/L (5-36)
[2019-02-28 06:33] LABS: Band Neutrophils % 1 % (0-10); Eosinophils % (Manual) 8 % (0-7); Lymphocytes % 35 % (15-49); Monocytes % (Manual) 4 % (1-12); Platelet Estimate NORMAL (NORMAL); RBC Morphology NORMAL (NORMAL); Segmented Neutrophils % 51 % (38-78)
[2019-02-28] MEDS ORDERED: POLYETHYLENE GLYCOL 3350 17 GM PACKET PO ONE (09:07)
[2019-02-28] MEDS: MULTIVIT,THER IRON,CA,FA & MIN 1 TABLET PO SCH (09:25)
[2019-02-28] MEDS: cefTRIAXone 2 GM in DEXTROSE 5% IN WATER 50 ML IV SCH (09:25)
[2019-02-28] MEDS: CYANOCOBALAMIN (VITAMIN B-12) 500 MCG TABLET PO SCH (09:25)
[2019-02-28] MEDS: DOCUSATE SODIUM 100 MG CAPSULE PO SCH (09:25)
[2019-02-28] MEDS: METOPROLOL TARTRATE 50 MG TABLET PO SCH (09:25)
[2019-02-28] MEDS: NICOTINE 21 MG PATCH TOPICAL SCH (09:26)
[2019-02-28] MEDS: LEVOFLOXACIN 750 MG/150 ML BAG IV SCH (09:38)
--- NOTE | 2019-02-28 10:47 | Discharge Summary ---
Medical - DS: Prov Patient information: Note initiated : 02/28/19 at 10:37 am Service Date, if different from initiated Date: [] Patient: Celina Zheng 53 y/o F admitted on 02/25/19 for Heart Palpitations. Chief Complaint: [] Date of admission: 02/25/19 03:31 Discharge date: 02/28/19 Primary care physician: Delfino Parada Consults: 02/25/19 Consult to Physician [CONS] Stat Comment: Consulting Provider: Erick Wright Reason For Exam: Physician to Consult Medical - DS: Meds - Discharge Medications Prescriptions: Cefdinir 300 mg PO BID #10 cap Levofloxacin [Levaquin] 750 mg PO DAILY #5 tab Active and Home Medications: Home Medications mecobalamin (vitamin B12) 1,000 mcg disintegrating tablet,sublingual 1,000 mcg SUBLINGUAL QDAY 12/19/18 [History Confirmed 02/25/19 Last Taken 02/05/19] multivitamin tablet 1 tab PO QAM 12/19/18 [History Confirmed 02/25/19 Last Taken 02/05/19] tizanidine 4 mg tablet 4 mg PO TID PRN #60 tab 12/19/18 [Rx Confirmed 02/25/19 Last Taken 02/24/19 20:00] hydrocodone 10 mg-acetaminophen 325 mg tablet 1 tab PO TID 28 Days #84 tab 01/28/19 [Rx Confirmed 02/25/19 Last Taken 02/24/19 12:00] Acetaminophen [Tylenol Arthritis] 500 mg PO BID 02/25/19 [History Confirmed 02/25/19 Last Taken 02/24/19 21:00] Naproxen Sod/Diphenhydram HCl [Aleve Pm Caplet] 1 tab PO BID 02/25/19 [History Confirmed 02/25/19 Last Taken 02/24/19 18:00] Cefdinir 300 mg PO BID #10 cap 02/28/19 [Rx Last Taken Unknown] Levofloxacin [Levaquin] 750 mg PO DAILY #5 tab 02/28/19 [Rx Last Taken Unknown] Medical - DS: Hosp Hospital course: Discharge diagnosis * Left lower lobe pneumonia- clinically improved on antibiotics. White count normalized. Patient will continue additional 5 days of oral antibiotics. Discharge instructions as below. Recommend repeat CT scan in 2 weeks for evaluation of dense along infiltrate resolution * Pleurisy-secondary pneumonia. Negative chest ultrasound empyema or collection. Will need repeat CT in 2 weeks * Atrial fibrillation with rapid ventricular rate-secondary to sepsis and pneumonia. Spontaneously cardioverted now in sinus. Off anticoagulation * Hypoxic respiratory insufficiency - resolved now on room air * Severe sepsis with white count over 18,000. Resolved now white count 7000 * Acute Klebsiella cystitis-continue antibiotic coverage Brief hospital course Ms. Zheng is a 53 year old F who comes in with her spouse Renetta to [facility] ER after noticing worsening shortness of breath along with cough and chest palpitation that started 8 hours prior to presentation. Patient has been feeling sick over the last couple of days however her symptoms progressed dramatically this morning after experiencing rapid heart rate along with pleuritic chest pain on the left side. She has associated sweats but denies fever or chills. She denies recent exposure to sick contacts the hospitalization. She denies choking episodes. She denies prior similar events. She continues to smoke a pack a day. Initial workup in the ER was consistent with sepsis with white count over 18,000 along with left lower lobe dense infiltrate consistent with pneumonia. Initial heart rate was over 150 atrial fibrillation. Patient was started on diltiazem drip. Pancultures obtained and sent, antibiotics were initiated . Subsequently hospitalist service for consult for admission At the time evaluation patient is alert oriented. She is able to answer most of the questions. She denies diarrhea, dysuria, abdominal pain, weight loss, glandular swelling. She does have left-sided facial droop. 02/26-patient doing a lot better. No overnight events. White count down from 18,000-8000. Improved shortness of breath. Stable hemodynamics. Heart rate improving. Metoprolol increased from 25-50 mg. Started on full dose anticoagulation on rivaroxaban. Patient would be a candidate for cardioversion in 28 days if fails to convert spontaneously. Cultures negative so far, urine culture gram-negative masses, negative serologies. Pro-calcitonin 1.26. Patient will need outpatient CT in 10-14 days for interval assessment of lung density 02/27-doing well, c/o pleuritic chest pain left side, repeat chest imaging persistent infiltrate. If pleurisy persistent will rule out syndrome pneumonia Effusion/empyema in 24 hours. Patient converted to sinus post digoxin. DC rivaroxaban/digoxin. Family members at bedside. No overnight events including fever chills or productive cough. No other concerns expressed by nursing staff. White count down to 7.2, LFTs slightly elevated. 02/28-patient doing remarkably well. No overnight events. No concerns per staff. No fever chills nausea vomiting. Pleuritic chest pain much improved. Requesting discharge. Additional 5 days antibiotics with follow-up PCP in 5-7 days. Also recommend repeat CT scan chest in 2 weeks to assess interval resolution of lung densi ty/pneumonia. White count at 7. Urine culture revealed Klebsiella pansensitive. Chest ultrasound negative for effusion Discharge diagnosis: . - Time Spent with Patient Total time spent providing and/or coordinating discharge services: Greater than 30 minutes (.) Medical - DS: Exam - Constitutional Vitals: Vital Signs Temp Pulse Resp BP BP Pulse Ox 02/28/19 08:00 97.4 F 02/28/19 07:59 97.7 F 20 127/71 91 02/28/19 03:58 98.0 F 16 118/73 97 02/28/19 00:57 138/70 02/28/19 00:49 97.5 F 20 138/70 96 02/27/19 21:07 122/85 02/27/19 21:00 97.3 F 16 122/85 96 02/27/19 16:09 144/73 95 02/27/19 14:18 121/81 02/27/19 12:38 145/78 95 02/27/19 12:00 97.9 F 75 18 145/78 95 Intake and Output 02/27/19 02/28/19 02/28/19 21:59 05:59 13:59 Intake Total 250 480 Balance 250 480 Intake: IV 250 Rocephin 2 gm In Dextrose 5% in 50 Water 50 ml @ 100 mls/hr IV Q24H [facility] Rx#:[id number] Oral 480 Other: Meal Grapes/berries Breakfast Percent of Meal Consumed 100% 100% Feeding Ability Independent Independent # Voids 1 1 Weight 250 lb Medical - DS: Data Labs on day of discharge: Labs from last 24 hours 02/28/19 02/28/19 03:34 03:34 WBC 7.0 RBC 3.26 L Hgb 9.3 L Hct 28.9 L MCV 88.5 MCH 28.5 MCHC 32.2 RDW 14.0 Plt Count 240 MPV 10.3 Total Counted 100 Seg Neutrophils % 51 Band Neutrophils % 1 Lymphocytes % 35 Monocytes % (Manual) 4 Eosinophils % (Manual) 8 H Reactive Lymphocytes 1 Platelet Estimate Normal RBC Morphology Normal Sodium 141 Potassium 4.7 Chloride 106 Carbon Dioxide 24 Anion Gap 11.0 BUN 9 Creatinine 0.4 L GFR Calculation 120 Glucose 89 Uric Acid 6.0 Calcium 9.2 Phosphorus 4.2 Magnesium 1.8 Total Bilirubin 0.2 Direct Bilirubin < 0.2 GGT 132 H AST 38 H ALT 41 H Alkaline Phosphatase 176 H Lactate Dehydrogenase 229 Total Protein 6.4 Albumin 2.9 L Globulin 3.5 Albumin/Globulin Ratio 0.8 L Triglycerides 88 Preliminary micro results at discharge 02/25/19 03:25 Blood Culture - Preliminary Blood 02/25/19 04:53 Blood Culture - Preliminary Blood Medical - DS: A/P - Patient/Caregiver Discharge Instructions Activity: increase activity as tolerated Diet: Regular Diet Additional Instructions: Follow-up PCP in 5 days I recommend primary care physician to check CBC AND FOLLOW-UP CHEST CT IN 2 WEEKS. Large lung infiltrate with suspicion of malignancy Antibiotics for additional 5 days All meals on chair sitting upright at 90 degrees to prevent aspiration Return to ER if worsening fever chills shortness of breath, diarrhea, bleeding Review risk and side effect profile of medications including antibiotics. Side effect may include mild to severe reaction including rash, diarrhea, cdiff and even which can be prevented by close follow-up with PCP and monitoring for side effects Refrain from smoking and alcohol Continue diet and activity as advised Discussed importance of medication adherence Please review medication list with patient prior to discharge Please schedule follow-up with PCP/Providers prior to discharge and provide printouts Prescriptions: Cefdinir 300 mg PO BID #10 cap Levofloxacin [Levaquin] 750 mg PO DAILY #5 tab - Problem Maintenance (1) Atrial fibrillation with RVR Status: Acute - Follow up Plan Follow up with: Delfino Parada PA-C [Primary Care Provider] - 03/10/19 10:00 am (Please check in at 9:45am) Disposition: Home, Self-Care Prognosis: Fair Rehab Potential: Fair I certify that the patient requires SNF services: No Overall status at discharge: patient is back to baseline Medical - DS: Qual - VTE Deep Vein Thrombosis/Pulmonary Embolism Present on Admission: No
== END 2019-02-28 12:05 | disposition home or self-care (01) | DRG 871 ==
LOC: ED 00:22 → ICU 03:31
PROVIDERS: ADMIT Internal Medicine; ATTEND Internal Medicine